=== PATIENT | female | born 1950 | race Caucasian/White ===

== ENCOUNTER 2019-03-12 10:29 | Emergency (ER) | payer MEDICARE, BC ==
[2019-03-12 10:57] VITALS: BP 132/54
--- NOTE | 2019-03-12 11:21 | UC ---
Cardiac HPI - History of Current Complaint Chief Complaint: UCGeneralIllness Stated Complaint: CHEST CONGESTION,COUGH,ST Time Seen by Provider: 03/12/19 11:09 Pain Intensity: 0 - Allergy/Home Medications Allergies/Adverse Reactions: Allergies Allergy/AdvReac Type Severity Reaction Status Date / Time ciprofloxacin [From Cipro] Allergy Nausea Verified 03/12/19 11:16 Penicillins Allergy Unknown Verified 03/12/19 11:18 Reaction Details phenobarbital Allergy See Comment Verified 03/12/19 11:14 pseudoephedrine Allergy See Comment Verified 03/12/19 11:17 [From Sudafed] Sulfa (Sulfonamide Allergy Nausea Verified 03/12/19 11:15 Antibiotics) tramadol Allergy Headache Verified 03/12/19 11:15 Home Medications: Home Medications Bifidobacterium Infantis [Align] 4 mg PO DAILY 03/12/19 [History Confirmed 03/12] Budesonide [Rhinocort Allergy] 5 ml NS DAILY PRN 03/12/19 [History Confirmed 04/23] Cetirizine* [ZyrTEC 10 MG TAB*] 10 mg PO DAILY 03/12/19 [History Confirmed 03/12] Cinnamon Bark/Chromium Picolin [Cinnamon Plus Chromium 100-500 Mcg-mg] 1 cap PO DAILY 03/12/19 [History Confirmed 03/12/19] Cyanocobalamin TAB* [Vitamin B12 TAB*] 5,000 mcg PO DAILY 03/12/19 [History Confirmed 03/12/19] HYDROcodo/Acetam5/325MG PREPAK [HYDROcodone/ACETAMIN 5-325 MG* PREPAK] 1 tab PO DAILY PRN 03/12/19 [History Confirmed 03/12/19] Levothyroxine TAB* [Synthroid 75 MCG TAB*] 75 mcg PO DAILY 03/12/19 [History Confirmed 03/12/19] Multivit-Min/Iron/Folic/Lutein [Centrum Silver Women Tablet] 1 each PO DAILY 04/23 [History Confirmed 03/12/19] Ondansetron ODT TAB* [Zofran 4 MG Odt TAB*] 4 mg PO Q6H PRN 03/12/19 [History Confirmed 03/12/19] Sucralfate TAB* [Carafate*] 1 gm PO BID 03/12/19 [History Confirmed 03/12/19] PMH/Surg Hx/FS Hx/Imm Hx - Surgical History Surgical History: Yes Surgery Procedure, Year, and Place: tonsillectomy. ablation. choleysystectomy - Social History Alcohol Use: Rare Substance Use Type: None Smoking Status (MU): Never Smoked Tobacco Physical Exam Vital Signs: Initial Vital Signs Temp 98.0 F 03/12/19 10:48 Pulse 60 03/12/19 10:48 Resp 18 03/12/19 10:48 BP 132/54 03/12/19 10:48 Pulse Ox 99 03/12/19 10:48 Discharge - Discharge Plan Referrals: Thea Gagnon PA [Primary Care Provider] -
--- NOTE | 2019-03-12 11:31 | UC ---
Respiratory Complaint HPI - HPI Summary HPI Summary: Pt presents with c/o cough, nasao congestion, sinus pressure and pain X 3 weeks. - History of Current Complaint Chief Complaint: UCGeneralIllness Stated Complaint: CHEST CONGESTION,COUGH,ST Time Seen by Provider: 03/12/19 11:09 Hx Obtained From: Patient ?: No Onset/Duration: Gradual Onset, Lasting Weeks, Still Present, Worse Since - onset Timing: Constant Severity Initially: Mild Severity Currently: Moderate Pain Intensity: 0 Character: Cough: Productive - yellow Aggravating Factors: Allergens, Deep Breaths, Recumbent Position Alleviating Factors: Nothing Associated Signs And Symptoms: Positive: Wheezing - with cough, URI, Nasal Congestion, Sinus Discomfort Related History: Seasonal Allergies - Risk Factors Pulmonary Embolism Risk Factors: Negative Cardiac Risk Factors: Negative Pseudomonas Risk Factors: Negative Tuberculosis Risk Factors: Negative - Allergies/Home Medications Allergies/Adverse Reactions: Allergies Allergy/AdvReac Type Severity Reaction Status Date / Time ciprofloxacin [From Cipro] Allergy Nausea Verified 03/12/19 11:16 Penicillins Allergy Unknown Verified 03/12/19 11:18 Reaction Details phenobarbital Allergy See Comment Verified 03/12/19 11:14 pseudoephedrine Allergy See Comment Verified 03/12/19 11:17 [From Sudafed] Sulfa (Sulfonamide Allergy Nausea Verified 03/12/19 11:15 Antibiotics) tramadol Allergy Headache Verified 03/12/19 11:15 Home Medications: Home Medications Bifidobacterium Infantis [Align] 4 mg PO DAILY 03/12/19 [History Confirmed 03/12] Budesonide [Rhinocort Allergy] 5 ml NS DAILY PRN 03/12/19 [History Confirmed 04/23] Cetirizine* [ZyrTEC 10 MG TAB*] 10 mg PO DAILY 03/12/19 [History Confirmed 03/12] Cinnamon Bark/Chromium Picolin [Cinnamon Plus Chromium Capsule] 1 cap PO DAILY 03/12/19 [History Confirmed 03/12/19] Cyanocobalamin TAB* [Vitamin B12 TAB*] 5,000 mcg PO DAILY 03/12/19 [History Confirmed 03/12/19] HYDROcodo/Acetam5/325MG PREPAK [HYDROcodone/ACETAMIN 5-325 MG* PREPAK] 1 tab PO DAILY PRN 03/12/19 [History Confirmed 03/12/19] Levothyroxine TAB* [Synthroid 75 MCG TAB*] 75 mcg PO DAILY 03/12/19 [History Confirmed 03/12/19] Multivit-Min/Iron/Folic/Lutein [Centrum Silver Women Tablet] 1 each PO DAILY 04/23 [History Confirmed 03/12/19] Ondansetron ODT TAB* [Zofran 4 MG Odt TAB*] 4 mg PO Q6H PRN 03/12/19 [History Confirmed 03/12/19] Sucralfate TAB* [Carafate*] 1 gm PO BID 03/12/19 [History Confirmed 03/12/19] PMH/Surg Hx/FS Hx/Imm Hx Previously Healthy: Yes Cardiovascular History: Cardiac Disease - Surgical History Surgical History: Yes Surgery Procedure, Year, and Place: tonsillectomy. ablation. choleysystectomy - Family History Known Family History: Positive: Cardiac Disease - Social History Occupation: Retired Lives: Alone Alcohol Use: Rare Substance Use Type: None Smoking Status (MU): Never Smoked Tobacco Have You Smoked in the Last Year: No - Immunization History Vaccination Up to Date: Yes Review of Systems All Other Systems Reviewed And Are Negative: Yes Constitutional: Positive: Chills, Fatigue Skin: Positive: Negative Eyes: Positive: Negative ENT: Positive: Nasal Discharge, Sinus Congestion, Sinus Pain/Tenderness Respiratory: Positive: Cough Cardiovascular: Positive: Negative Gastrointestinal: Positive: Negative Genitourinary: Positive: Negative Motor: Positive: Negative Neurovascular: Positive: Negative Musculoskeletal: Positive: Myalgia Neurological: Positive: Negative Psychological: Positive: Negative Is Patient Immunocompromised?: No Physical Exam Triage Information Reviewed: Yes Appearance: Ill-Appearing Vital Signs: Initial Vital Signs Temp 98.0 F 03/12/19 10:48 Pulse 60 03/12/19 10:48 Resp 18 03/12/19 10:48 BP 132/54 03/12/19 10:48 Pulse Ox 99 03/12/19 10:48 Vital Signs Reviewed: Yes Eye Exam: Normal ENT: Positive: Nasal congestion, Sinus tenderness Dental Exam: Normal Neck exam: Normal Respiratory Exam: Normal Cardiovascular Exam: Normal Musculoskeletal Exam: Normal Neurological Exam: Normal Psychological Exam: Normal Skin Exam: Normal Respiratory Course/Dx - Differential Dx/Diagnosis Differential Diagnosis/HQI/PQRI: Bronchitis, Sinusitis Provider Diagnosis: Sinusitis Discharge - Sign-Out/Discharge Documenting (check all that apply): Patient Departure All imaging exams completed and their final reports reviewed: No Studies - Discharge Plan Condition: Stable Disposition: HOME Prescriptions: Erythromycin TAB* 500 mg PO Q8H #30 tab Patient Education Materials: Sinusitis (ED) Referrals: Thea Gagnon PA [Primary Care Provider] - If Needed Additional Instructions: Please follow up with your PCP as needed. - Billing Disposition and Condition Condition: STABLE Disposition: Home - Attestation Statements Provider Attestation: I was available for consult. This patient was seen by the JAROD. The patient was not presented to, seen by, or examined by me. -Genoveva
== END 2019-03-12 11:40 | disposition home or self-care (01) ==
LOC: UCCORT 10:29
DX: J32.9 Chronic sinusitis, unspecified (principal); Z88.1 Allergy status to other antibiotic agents; Z88.5 Allergy status to narcotic agent; Z88.0 Allergy status to penicillin; Z88.2 Allergy status to sulfonamides; Z88.8 Allergy status to other drugs, medicaments and biological substances
CPT/HCPCS: 99212; G0463

== ENCOUNTER 2019-03-14 17:22 | Emergency (ER) | payer MEDICARE, BC ==
[2019-03-14 17:48] VITALS: BP 149/57
--- NOTE | 2019-03-14 18:19 | UC ---
Respiratory Complaint HPI - HPI Summary HPI Summary: per english faculty member: "PT WAS SEEN HERE 03/12/19 AND DX SINUSITIS; RX ERYTHROMYCIN 500MG TID X10 DAYS. STATES TODAY SORE THROAT, SNEEZING AND COUGHING WORSE. SOMETIMES FEELS WARM AND COLD, BUT UNSURE OF FEVER. TAKING MUCINEX PRN W/ SOME RELIEF. " -she always requests erythromycin bc its the only one that doesnt bother her stomach -sinus pain is a little better, has some swollen glands at ant cx neck. now has ST. no known exudate. sneezing/coughing, no wheezing. takes zyrtec, singulair, rhinocort. doesnt use saline rinses. -no abd pain/n/v/d. - History of Current Complaint Chief Complaint: UCRespiratory Stated Complaint: SINUS Time Seen by Provider: 03/14/19 18:17 Pain Intensity: 3 - Allergies/Home Medications Allergies/Adverse Reactions: Allergies Allergy/AdvReac Type Severity Reaction Status Date / Time ciprofloxacin [From Cipro] Allergy Nausea Verified 03/14/19 17:41 Penicillins Allergy Unknown Verified 03/14/19 17:41 Reaction Details phenobarbital Allergy See Comment Verified 03/14/19 17:41 pseudoephedrine Allergy See Comment Verified 03/14/19 17:41 [From Sudafed] Sulfa (Sulfonamide Allergy Nausea Verified 03/14/19 17:41 Antibiotics) tramadol Allergy Headache Verified 03/14/19 17:41 Home Medications: Home Medications Cholecalciferol (Vitamin D3) [Vitamin D3] 3,000 unit PO DAILY 03/14/19 [History Confirmed 03/14/19] Dabigatran Etexilate Mesylate [Pradaxa] 150 mg PO DAILY 03/14/19 [History Confirmed 03/14/19] Hydrocodone/Acetaminophen [Hydrocodone-Acetamin 5-325 mg] 1 tab PO Q4HR PRN 06/23 [History Confirmed 03/14/19] Lisinopril [Prinivil] 5 mg PO DAILY 03/14/19 [History Confirmed 03/14/19] Magnesium Oxide [Magnesium] 500 mg PO BID 03/14/19 [History Confirmed 03/14/19] Omeprazole 20 mg PO DAILY 03/14/19 [History Confirmed 03/14/19] Potassium Chlor TAB (NF) [Kaon-Cl-10 TAB (NF)] 20 meq PO TID 03/14/19 [History Confirmed 03/14/19] Torsemide 10 mg PO DAILY 03/14/19 [History Confirmed 03/14/19] dilTIAZem HCl [Cartia Xt] 240 mg PO DAILY 03/14/19 [History Confirmed 03/14/19] diphenhydrAMINE HCl [Benadryl Allergy] 25 mg PO Q6HR PRN 03/14/19 [History Confirmed 03/14/19] PMH/Surg Hx/FS Hx/Imm Hx Previously Healthy: Yes Endocrine History: Diabetes, Thyroid Disease, Dyslipidemia Cardiovascular History: Hypertension - Surgical History Surgical History: Yes Surgery Procedure, Year, and Place: tonsillectomy. ablation. choleysystectomy - Family History Known Family History: Positive: Cardiac Disease - Social History Alcohol Use: Rare Substance Use Type: None Smoking Status (MU): Never Smoked Tobacco Have You Smoked in the Last Year: No - Immunization History Vaccination Up to Date: Yes Review of Systems All Other Systems Reviewed And Are Negative: Yes Constitutional: Positive: Negative Skin: Positive: Negative Eyes: Positive: Negative ENT: Positive: Sore Throat, Nasal Discharge, Sinus Pain/Tenderness Respiratory: Positive: Cough. Negative: Shortness Of Breath Cardiovascular: Positive: Negative Gastrointestinal: Positive: Negative Genitourinary: Positive: Negative Motor: Positive: Negative Neurovascular: Positive: Negative Musculoskeletal: Positive: Negative Neurological: Positive: Negative Psychological: Positive: Negative Is Patient Immunocompromised?: No Physical Exam Triage Information Reviewed: Yes Appearance: Well-Appearing, No Pain Distress, Well-Nourished - there is no sneezing or coughing during my time in roomw / pt. she speaks full sentences, non-laborious Vital Signs: Initial Vital Signs Temp 97.1 F 03/14/19 17:42 Pulse 62 03/14/19 17:42 Resp 16 03/14/19 17:42 BP 149/57 03/14/19 17:42 Pulse Ox 99 03/14/19 17:42 Eye Exam: Normal ENT: Positive: Pharynx normal - but w/ + PND, no exudate. no abscess, Nasal congestion, Nasal drainage, TMs normal, Uvula midline. Negative: TM bulging, TM dull, TM red, Tonsillar swelling, Tonsillar exudate, Sinus tenderness Neck: Positive: Enlarged Nodes @ - mild b/l tender anterior cx LNs. Respiratory Exam: Normal Respiratory: Positive: Lungs clear, Normal breath sounds, No respiratory distress, No accessory muscle use. Negative: Crackles, Rhonchi, Stridor, Wheezing Cardiovascular Exam: Normal Cardiovascular: Positive: RRR Abdominal Exam: Normal Abdomen Description: Positive: Nontender, Soft Musculoskeletal Exam: Normal Neurological Exam: Normal Psychological Exam: Normal Skin Exam: Normal Respiratory Course/Dx - Course Course Of Treatment: She is on day 3 of erythromycin for sinusitis. she was also dx'd w/ bronchitis 2 d ago. explained that sinusitis can take some time for imporvemnt d/t poor vasscularity in the area. ST is likely from the PND. recommend saline lavage w/ distiilled water to be added to what she already takes (zyrtec, singulair and rhinocort). unlikely to be strep in light of other sx and erythromycin would cover it. -answered questions to the best of my ability. -she is agreeable/ - Differential Dx/Diagnosis Differential Diagnosis/HQI/PQRI: Asthma, Bronchitis, Laryngitis Provider Diagnosis: Environmental allergies, Pharyngitis Discharge - Sign-Out/Discharge Documenting (check all that apply): Patient Departure All imaging exams completed and their final reports reviewed: No Studies - Discharge Plan Condition: Stable Disposition: HOME Patient Education Materials: Pharyngitis (ED), Allergies (ED) Referrals: Thea Gagnon PA [Primary Care Provider] - 1 Week Additional Instructions: Make sure to get plenty of rest and fluids. The netti pot w/ distilled water will be helpful. There is no evidence for strep throat. you can continue taking the erythromycin. - Billing Disposition and Condition Condition: STABLE Disposition: Home
== END 2019-03-14 19:00 | disposition home or self-care (01) ==
LOC: UCCORT 17:22
DX: T78.49XA Other allergy, initial encounter (principal); X58.XXXA Exposure to other specified factors, initial encounter; J02.9 Acute pharyngitis, unspecified; Z88.0 Allergy status to penicillin; Z88.1 Allergy status to other antibiotic agents; E11.9 Type 2 diabetes mellitus without complications; I10 Essential (primary) hypertension
CPT/HCPCS: 99212; G0463